=== PATIENT | female | born 1990 | race Caucasian/White ===

== ENCOUNTER → 2020-12-19 | Outpatient (CLI) | payer OTHER | LOC: KOH-I 12-18 13:00 | DX: E04.1 Nontoxic single thyroid nodule (principal) | CPT/HCPCS: 76536 ==

== ENCOUNTER → 2021-06-20 | Outpatient (CLI) | payer OTHER | LOC: KOH-I 03-07 13:00 | DX: E04.1 Nontoxic single thyroid nodule (principal) | CPT/HCPCS: 76536 ==

== ENCOUNTER → 2021-12-27 | Outpatient (CLI) | payer OTHER | LOC: US 12-24 13:30 | DX: E04.1 Nontoxic single thyroid nodule (principal) | CPT/HCPCS: 76536 ==

== ENCOUNTER 2022-03-17 09:40 | Emergency (ER) | payer OTHER ==
[2022-03-17 10:09] LABS: HEMOGLOBIN 14.7 gm/dl (12.3-15.3); RED BLOOD COUNT 5.1 M/UL (4.00-5.10); WHITE BLOOD COUNT 11.9 K/UL (4.5-11.0)
[2022-03-17 10:34] LABS: BUN/CREATININE RATIO 13 (0-10)
[2022-03-17] MEDS ORDERED: TORADOL 10 MG T10 MG PO (16:02)
[2022-03-17] MEDS ORDERED: ZOFRAN ODT 4 MG4 MG SL (16:03)
== END 2022-03-17 16:19 | disposition home or self-care (01) ==
LOC: ER1 09:40
PROVIDERS: Physician Assistant
DX: R10.30 Lower abdominal pain, unspecified (principal); R10.817 Generalized abdominal tenderness; Z79.899 Other long term (current) drug therapy
CPT/HCPCS: 76830; 80053; 81001; 84703; 85025; 96374; 96375; 99284; J1885; J2405; Q9967